=== PATIENT | female | born 1960 | race American Indian/Alaskan Native ===

== ENCOUNTER 2018-02-20 13:22 | Emergency (ER) | payer SELFPAY ==
[2018-02-20] MEDS ORDERED: ZOFRAN IV ONE ×2 (14:09→17:49)
[2018-02-20] MEDS ORDERED: MORPHINE IV ONE ×2 (14:09→17:49)
[2018-02-20] MEDS ORDERED: NACL 0.9% 1000 ML 1,000 ML IV ONE (14:09)
--- NOTE | 2018-02-20 14:13 | Emergency Department Report ---
Blank Doc - Documentation Documentation: 57-year-old female with epigastric pain nausea vomiting since this morning. Denies fever, constipation, diarrhea or urinary symptoms. History of hysterectomy in the past. Patient appears uncomfortable. Abdomen is nontender. States palpation actually helps to relieve some of her pain. Will obtain labs, EKG, imaging.
--- NOTE | 2018-02-20 14:34 | Emergency Department Report ---
ED Abdominal Pain HPI - General Chief Complaint: Abdominal Pain Stated Complaint: ABD PAIN Time Seen by Provider: 02/20/18 14:06 Source: patient, family, EMS Mode of arrival: Wheelchair Limitations: No Limitations - History of Present Illness Initial Comments: 57-year-old female with epigastric pain nausea vomiting since this morning. Denies fever, constipation, diarrhea or urinary symptoms. History of hysterectomy in the past. She said her pain is 10 out of 10 and sharp. Denies any fever or chills. Denies any diarrhea. MD Complaint: abdominal pain -: This morning Location: periumbilical, epigastric Radiation: none Migration to: no migration Severity: severe Severity scale (0 -10): 10 Quality: sharp Consistency: constant Improves With: nothing Worsens With: nothing Context: other (unknown) Associated Symptoms: nausea, vomiting, diarrhea. denies: fever, chills, constipation, dysuria, hematemesis, hematochezia, melena, hematuria, anorexia, syncope Treatments Prior to Arrival: other - Related Data LMP (females 10-50): other (hysterectomy) Allergies Allergy/AdvReac Type Severity Reaction Status Date / Time No Known Allergies Allergy Unverified 02/20/18 13:28 ED Review of Systems ROS: Stated complaint: ABD PAIN Other details as noted in HPI Constitutional: denies: chills, fever Eyes: denies: eye pain, eye discharge, vision change ENT: denies: ear pain, throat pain Respiratory: denies: cough, shortness of breath, SOB with exertion, SOB at rest , stridor, wheezing Cardiovascular: denies: chest pain, palpitations, dyspnea on exertion, edema, syncope Gastrointestinal: abdominal pain, nausea, vomiting. denies: diarrhea, constipation, hematemesis, melena, hematochezia Genitourinary: denies: urgency, dysuria, frequency, hematuria, discharge, abnormal menses, dyspareunia Musculoskeletal: denies: back pain, joint swelling, arthralgia, myalgia Skin: denies: rash, lesions Neurological: denies: headache, weakness Psychiatric: denies: anxiety, depression Hematological/Lymphatic: denies: easy bleeding, easy bruising ED Past Medical Hx - Past Medical History Previous Medical History?: No - Surgical History Past Surgical History?: Yes Additional Surgical History: fibroids - Family History Family history: hypertension - Social History Smoking Status: Never Smoker Substance Use Type: None ED Physical Exam - General Limitations: No Limitations General appearance: alert, in no apparent distress - Head Head exam: Present: atraumatic, normocephalic, normal inspection - Eye Eye exam: Present: normal appearance, PERRL, EOMI Pupils: Present: normal accommodation - ENT ENT exam: Present: normal exam, normal orophraynx, mucous membranes moist, TM's normal bilaterally, normal external ear exam - Neck Neck exam: Present: normal inspection, full ROM. Absent: tenderness, lymphadenopathy - Respiratory Respiratory exam: Present: normal lung sounds bilaterally. Absent: respiratory distress, chest wall tenderness, accessory muscle use - Cardiovascular Cardiovascular Exam: Present: regular rate, normal rhythm, normal heart sounds. Absent: systolic murmur, diastolic murmur - GI/Abdominal GI/Abdominal exam: Present: soft, tenderness, guarding, normal bowel sounds. Absent: rebound, rigid, organomegaly, mass, bruit, pulsatile mass, hernia - Expanded GI/Abdominal Exam Expanded GI/Abdominal exam: Present: Laura's sign, tenderness at [place]'s Point, other (tenderness also periumbilical and epigastric area no right upper quadrant tenderness). Absent: psoas sign, obturator sign - Extremities Exam Extremities exam: Present: normal inspection, full ROM, normal capillary refill , other (No cce. + 2 pulses in all extremities, no neurovascular compromise). Absent: tenderness, pedal edema, joint swelling, calf tenderness - Back Exam Back exam: Present: normal inspection, full ROM, other (ambulates without any difficulties). Absent: tenderness, CVA tenderness (R), CVA tenderness (L), muscle spasm, paraspinal tenderness, vertebral tenderness, rash noted - Neurological Exam Neurological exam: Present: alert, oriented X3, normal gait, reflexes normal. Absent: motor sensory deficit - Psychiatric Psychiatric exam: Present: normal affect, normal mood - Skin Skin exam: Present: warm, dry, intact, normal color. Absent: rash ED Course Vital Signs 02/20/18 02/20/18 02/20/18 13:28 15:31 16:23 Temperature 97.6 F 97.9 F Pulse Rate 81 70 Respiratory 16 18 20 Rate Blood Pressure 117/83 Blood Pressure 118/67 [Left] O2 Sat by Pulse 96 99 Oximetry 1002/20/18 02/20/18 16:45 17:36 18:11 Temperature 98.1 F Pulse Rate 86 Respiratory 18 18 18 Rate Blood Pressure Blood Pressure 114/70 [Left] O2 Sat by Pulse 99 100 Oximetry 02/20/18 18:20 Temperature 98.4 F Pulse Rate 89 Respiratory 18 Rate Blood Pressure Blood Pressure 125/75 [Left] O2 Sat by Pulse 100 Oximetry - Reevaluation(s) Reevaluation #1: 02/20/18 16:02 Patient states pain is better after morphine 4 mg IV, nausea better after Zofran 4 mg IV and she is currently getting in normal saline IV. Abdominal exam them still with epigastric and periumbilical tenderness. Patient to get CT scan of the abdomen and pelvis IV contrast. She has been updated. Reevaluation #2: 02/20/18 17:[address] findings with acute appendicitis and also herniation of liver and part of the diaphragm. Eyes: Spoke with surgeon who is Dr. Corrales and he reports that he is not to be able to handle her liver part of the surgery but he can handle the appendectomy. He said he thinks the patient needs to be transferred to another hospital such as [facility] or [place]. This was discussed with patient and I told her that she will need to be transferred and she is in agreement. I also gave her results of her CT scan. Lactic acid and blood culture ordered. Patient to start on D5 half-normal saline at 125 mL an hour and she was given morphine 4 mg IV and Zofran 4 g IV for continued pain. Abdominal assessment still with tenderness to palpate at McBurney's point and also periumbilical and epigastric area. Patient still says she has mild nausea and her pain is 10/10 at present. 02/20/18 23:17 Reevaluation #3: 02/20/18 18:[address] Corrales several time and it was decided the patient will need to be transferred and [facility] attending ED trauma surgeon except the patient to transfer from ED to ED. Dr. Adams who accepted patient. He was given for reports to include CT findings, laboratory results and physical exam findings. Patient will be started on Zosyn and she is transferred to main ED for continued care and monitoring. [facility] that [facility] did not have any trauma. ED Medical Decision Making - Lab Data Result diagrams: 02/20/18 Unknown 02/20/18 Unknown Lab Results 02/20/18 02/20/18 02/20/18 Range/Units 15:30 Unknown Unknown WBC 8.8 (4.5-11.0) K/mm3 RBC 5.05 H (3.65-5.03) M/mm3 Hgb 13.2 (10.1-14.3) gm/dl Hct 40.7 (30.3-42.9) % MCV 81 (79-97) fl MCH 26 L (28-32) pg MCHC 33 (30-34) % RDW 13.6 (13.2-15.2) % Plt Count 248 (140-440) K/mm3 Lymph % (Auto) 12.4 L (13.4-35.0) % Rush % (Auto) 4.3 (0.0-7.3) % Eos % (Auto) 0.7 (0.0-4.3) % Baso % (Auto) 0.5 (0.0-1.8) % Lymph # 1.1 L (1.2-5.4) K/mm3 Rush # 0.4 (0.0-0.8) K/mm3 Eos # 0.1 (0.0-0.4) K/mm3 Baso # 0.0 (0.0-0.1) K/mm3 Seg Neutrophils % 82.1 H (40.0-70.0) % Seg Neutrophils # 7.2 (1.8-7.7) K/mm3 Sodium 136 L (137-145) mmol/L Potassium 4.1 (3.6-5.0) mmol/L Chloride 100.1 (98-107) mmol/L Carbon Dioxide 27 (22-30) mmol/L Anion Gap 13 mmol/L BUN 12 (7-17) mg/dL Creatinine 0.8 (0.7-1.2) mg/dL Estimated GFR > 60 ml/min BUN/Creatinine Ratio 15 % Glucose 96 (65-100) mg/dL Calcium 10.2 (8.4-10.2) mg/dL Total Bilirubin 0.60 (0.1-1.2) mg/dL Direct Bilirubin < 0.2 (0-0.2) mg/dL Indirect Bilirubin 0.4 mg/dL AST 34 (5-40) units/L ALT 39 (7-56) units/L Alkaline Phosphatase 82 (35-129) units/L Troponin T < 0.010 (0.00-0.029) ng/mL Total Protein 8.3 H (6.3-8.2) g/dL Albumin 4.3 (3.9-5) g/dL Albumin/Globulin Ratio 1.1 % Lipase (13-60) units/L Urine Color Straw (Yellow) Urine Turbidity Clear (Clear) Urine pH 6.0 (5.0-7.0) Ur Specific [place] 1.006 (1.003-1.030) Urine Protein <15 mg/dl (Negative) mg/dL Urine Glucose (UA) Neg (Negative) mg/dL Urine Ketones Neg (Negative) mg/dL Urine Blood Sm (Negative) Urine Nitrite Neg (Negative) Urine Bilirubin Neg (Negative) Urine Urobilinogen < 2.0 (<2.0) mg/dL Ur Leukocyte Esterase Neg (Negative) Urine WBC (Auto) < 1.0 (0.0-6.0) /HPF Urine RBC (Auto) 3.0 (0.0-6.0) /HPF U Epithel Cells (Auto) 1.0 (0-13.0) /HPF Urine Mucus Few /HPF 02/20/18 Range/Units Unknown WBC (4.5-11.0) K/mm3 RBC (3.65-5.03) M/mm3 Hgb (10.1-14.3) gm/dl Hct (30.3-42.9) % MCV (79-97) fl MCH (28-32) pg MCHC (30-34) % RDW (13.2-15.2) % Plt Count (140-440) K/mm3 Lymph % (Auto) (13.4-35.0) % Rush % (Auto) (0.0-7.3) % Eos % (Auto) (0.0-4.3) % Baso % (Auto) (0.0-1.8) % Lymph # (1.2-5.4) K/mm3 Rush # (0.0-0.8) K/mm3 Eos # (0.0-0.4) K/mm3 Baso # (0.0-0.1) K/mm3 Seg Neutrophils % (40.0-70.0) % Seg Neutrophils # (1.8-7.7) K/mm3 Sodium (137-145) mmol/L Potassium (3.6-5.0) mmol/L Chloride (98-107) mmol/L Carbon Dioxide (22-30) mmol/L Anion Gap mmol/L BUN (7-17) mg/dL Creatinine (0.7-1.2) mg/dL Estimated GFR ml/min BUN/Creatinine Ratio % Glucose (65-100) mg/dL Calcium (8.4-10.2) mg/dL Total Bilirubin (0.1-1.2) mg/dL Direct Bilirubin (0-0.2) mg/dL Indirect Bilirubin mg/dL AST (5-40) units/L ALT (7-56) units/L Alkaline Phosphatase (35-129) units/L Troponin T (0.00-0.029) ng/mL Total Protein (6.3-8.2) g/dL Albumin (3.9-5) g/dL Albumin/Globulin Ratio % Lipase 53 (13-60) units/L Urine Color (Yellow) Urine Turbidity (Clear) Urine pH (5.0-7.0) Ur Specific [place] (1.003-1.030) Urine Protein (Negative) mg/dL Urine Glucose (UA) (Negative) mg/dL Urine Ketones (Negative) mg/dL Urine Blood (Negative) Urine Nitrite (Negative) Urine Bilirubin (Negative) Urine Urobilinogen (<2.0) mg/dL Ur Leukocyte Esterase (Negative) Urine WBC (Auto) (0.0-6.0) /HPF Urine RBC (Auto) (0.0-6.0) /HPF U Epithel Cells (Auto) (0-13.0) /HPF Urine Mucus /HPF Blood culture pending. Lactic acid pending - EKG Data -: EKG Interpreted by Me (head and physician) EKG shows normal: sinus rhythm Rate: normal - EKG Data Interpretation: no acute changes, normal EKG - Radiology Data Radiology results: report reviewed Abdominal series with chest [address] scan of the abdomen and pelvis with IV contrast dictated by radiologist and report reviewed by myself. Patient: ANNIKA ROBLES MR#: [id number] : 1960 Acct:[id number] Age/Sex: 57 / F ADM Date: 02/20/18 Loc: ED Attending Dr: Ordering Physician: KELTON MONTAÑO MD Date of Service: 02/20/18 Procedure(s): XR abd series w cxr 1V Accession Number(s): [id number] cc: KELTON MONTAÑO MD Fluoro Time In Minutes: ABDOMINAL SERIES: History: Epigastric pain. Erect chest film shows no acute or significant changes involving the heart or lung sellers. There is no evidence of free air beneath the diaphragms. The gas pattern within the abdomen is unremarkable. There is no evidence of bowel dilatation, significant air-fluid levels, or masses. Subtle calcifications are suggested in the epigastric region overlying the expected position of the pancreas. Chronic pancreatitis? IMPRESSION: Question mild chronic pancreatitis, see above. Otherwise, unremarkable exam. Transcribed By: TTR Dictated By: FRANTZ COMER JR, MD Electronically Authenticated By: FRANTZ COMER JR, MD Signed Date/Time: 02/20/181448 DD/ 47 TD/TT: 02/20/18 144 Findings [facility] [address] [place] [address] Cat Scan Report Signed Patient: ANNIKA ROBLES MR#: [id number] : 1960 Acct:[id number] Age/Sex: 57 / F ADM Date: 02/20/18 Loc: ED Attending Dr: Ordering Physician: CHEIKH FONTENOT Date of Service: 02/20/18 Procedure(s): CT abdomen pelvis w con Accession Number(s): [id number] cc: CHEIKH FONTENOT FINAL REPORT EXAM: CT ABDOMEN PELVIS W CON HISTORY: abdominal pain TECHNIQUE: Following administration of IV contrast axial helical imaging was performed through the abdomen and pelvis with sagittal and coronal reformatted images obtained. Delayed axial helical imaging was also performed through the abdomen and pelvis. Comparison: None FINDINGS: The lung bases are without infiltrate, pneumothorax or pleural fluid collection. The heart appears to be normal size. There appears to be herniation of a portion of the right lobe of the liver through the right hemidiaphragm. There appears to be intrahepatic biliary dilatation in the herniated portion of the right lobe of the liver. The spleen, pancreas, kidneys and adrenal glands are normal in appearance. The gallbladder is moderately distended and unremarkable in appearance. The distal appendix is enlarged (11 millimeters) and contains an appendicolith. There is the appearance of increased thickness of the wall of the distal appendix. The proximal appendix is normal caliber. There is a small amount of free fluid in the mesentery in the region of the distal appendix. There is no evidence of pneumoperitoneum. The bowel is otherwise normal caliber. The abdominal aorta is normal caliber. There is no evidence of pathologic intra-abdominal adenopathy by CT size criteria. Urinary bladder is moderately distended and unremarkable in appearance. The uterus is fibroid in appearance. The bony structures are unremarkable. IMPRESSION: 1. Findings consistent with acute appendicitis involving the distal appendix which contains an appendicolith. 2. Small amount of fluid in the mesentery in the region of the distal appendix. 3. 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 Comparison with previous imaging studies is recommended. MRI may also be helpful for further evaluation. Transcribed By: ED Dictated By: DELANEY FLEMING MD Electronically Authenticated By: DELANEY FLEMING MD Signed Date/Time: 02/20/181719 DD/ 19 TD/TT: 02/20/181719 - Medical Decision Making 57-year-old female here came report abdominal pain nausea and vomiting that started this morning. She was screened by Dr. Montaño and/or displaced. Abdominal x-ray with chest PA showed calcification and possible chronic pancreatitis but patient did not even know what pancreatitis and says she does not have any pain in her upper quadrant. On physical exam her pain was periumbilical and epigastric and also at McBurney's point. She had a CT scan of the abdomen and pelvis with IV contrast and he shows acute appendicitis with herniation of her lower lobe of her liver down into her diaphragm. Please see report for details in radiology section. She had CBC and CMP which were stable. Troponin stable, EKG is stable. Urinalysis stable. Patient had blood culture and lactic acid sent. Assessment/plan Abdominal pain-patient given morphine a total of 8 mg IV with some relief in pain. And vomiting and-relief with Zofran 8 mg IV. She also had normal saline 1 L and started on D5 half normal saline at 125 mL an hour Acute appendicitis-blood culture sent and patient started on Floxin. I spoke with general surgeon and was decided that patient will be transferred to another hospital due to other complications. Herniation of liver into diaphragm-patient will be transferred to [facility] ED and was accepted by trauma ED surgeon. She was updated on all radiology reports and lab results. I discussed with her that she needs to transferred to another hospital because hospital does not have to service that she needs for findings and her diagnosis. She agreed. Patient is stable. Pain is better nauseous relief. Vital signs are stable and she remains afebrile. Patient discharged over to [facility] to be monitored. Main site doctor assumed care of patient. She is awaiting transfer to [facility] ED - Differential Diagnosis hepatic abnormal, hernia, pancreatitis, abdominal mass, appendicitis, UTI, Critical care attestation.: If time is entered above; I have spent that time in minutes in the direct care of this critically ill patient, excluding procedure time. ED Disposition Clinical Impression: Diaphragmatic hernia without obstruction or gangrene Abdominal pain Qualifiers: Abdominal location: unspecified location Qualified Code(s): R10.9 - Unspecified abdominal pain Appendicitis, acute Qualifiers: Acute appendicitis type: other Qualified Code(s): K35.89 - Other acute appendicitis Nausea and vomiting Qualifiers: Vomiting type: unspecified Vomiting Intractability: non-intractable Qualified Code(s): R11.2 - Nausea with vomiting, unspecified Disposition: DC/TX-70 ANOTHER TYPE HLTHCARE Is pt being admited?: No Does the pt Need Aspirin: No Condition: Stable Instructions: Abdominal Pain (ED) Referrals: PRIMARY CARE, [Primary Care Provider] - 3-5 Days
--- NOTE | 2018-02-20 14:50 | XRay Report ---
ABDOMINAL SERIES: History: Epigastric pain. Erect chest film shows no acute or significant changes involving the heart or lung sellers. There is no evidence of free air beneath the diaphragms. The gas pattern within the abdomen is unremarkable. There is no evidence of bowel dilatation, significant air-fluid levels, or masses. Subtle calcifications are suggested in the epigastric region overlying the expected position of the pancreas. Chronic pancreatitis? IMPRESSION: Question mild chronic pancreatitis, see above. Otherwise, unremarkable exam.
[2018-02-20 15:59] LABS: Bilirubin,Urine NEG (Negative); Blood,Urine SM (Negative); Color,Urine Straw (Yellow); Mucus,Urine FEW /HPF; Protein,Urine <15 mg/dL mg/dL (Negative); Urobilinogen,Urine < 2.0 mg/dL (<2.0); WBC,Urine < 1.0 /HPF (0.0-6.0)
[2018-02-20 16:01] LABS: Basophils % (Auto) 0.5 % (0.0-1.8); Eosinophils # (Auto) 0.1 K/mm3 (0.0-0.4); Eosinophils % (Auto) 0.7 % (0.0-4.3); Hematocrit 40.7 % (30.3-42.9); Hemoglobin 13.2 gm/dl (10.1-14.3); Lymphocytes # (Auto) 1.1 K/mm3 (1.2-5.4); Lymphocytes % (Auto) 12.4 % (13.4-35.0); Mean Corpuscular HGB Conc 33 % (30-34); Mean Corpuscular Hemoglobin 26 pg (28-32); Mean Corpuscular Volume 81 fl (79-97); Monocytes # (Auto) 0.4 K/mm3 (0.0-0.8); Monocytes % (Auto) 4.3 % (0.0-7.3); Platelet Count 248 K/mm3 (140-440); Red Blood Count 5.05 M/mm3 (3.65-5.03); Red Cell Distribution Width 13.6 % (13.2-15.2)
[2018-02-20 16:02] LABS: Alanine Aminotransferase 39 units/L (7-56); Albumin 4.3 g/dL (3.9-5); BUN/Creatinine Ratio 15; Blood Urea Nitrogen 12 mg/dL (7-17); Calcium 10.2 mg/dL (8.4-10.2); Hemolysis Index 16
[2018-02-20 16:22] LABS: Bilirubin,Direct < 0.2 mg/dL (0-0.2)
--- NOTE | 2018-02-20 17:21 | Cat Scan Report ---
FINAL REPORT EXAM: CT ABDOMEN PELVIS W CON HISTORY: abdominal pain TECHNIQUE: Following administration of IV contrast axial helical imaging was performed through the abdomen and pelvis with sagittal and coronal reformatted images obtained. Delayed axial helical imaging was also performed through the abdomen and pelvis. Comparison: None FINDINGS: The lung bases are without infiltrate, pneumothorax or pleural fluid collection. The heart appears to be normal size. There appears to be herniation of a portion of the right lobe of the liver through the right hemidiaphragm. There appears to be intrahepatic biliary dilatation in the herniated portion of the right lobe of the liver. The spleen, pancreas, kidneys and adrenal glands are normal in appearance. The gallbladder is moderately distended and unremarkable in appearance. The distal appendix is enlarged (11 millimeters) and contains an appendicolith. There is the appearance of increased thickness of the wall of the distal appendix. The proximal appendix is normal caliber. There is a small amount of free fluid in the mesentery in the region of the distal appendix. There is no evidence of pneumoperitoneum. The bowel is otherwise normal caliber. The abdominal aorta is normal caliber. There is no evidence of pathologic intra-abdominal adenopathy by CT size criteria. Urinary bladder is moderately distended and unremarkable in appearance. The uterus is fibroid in appearance. The bony structures are unremarkable. IMPRESSION: 1. Findings consistent with acute appendicitis involving the distal appendix which contains an appendicolith. 2. Small amount of fluid in the mesentery in the region of the distal appendix. 3. 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 Comparison with previous imaging studies is recommended. MRI may also be helpful for further evaluation.
[2018-02-20] MEDS ORDERED: ZOFRAN ONE (17:53)
[2018-02-20] MEDS ORDERED: MORPHINE ONE ×2 (17:53→17:54)
[2018-02-20] MEDS ORDERED: D5/0.45NS 1,000 ML IV SCH (18:00)
[2018-02-20 18:21] VITALS: BP 125/75
[2018-02-20] MEDS ORDERED: ZOSYN/NS 4.5GM/100ML 4.5 GM/100 ML VIAL IV SCH (19:00)
== END 2018-02-20 19:09 | disposition other institution (70) ==
LOC: ED 13:22
DX: K35.890 Other acute appendicitis without perforation or gangrene (principal); K44.9 Diaphragmatic hernia without obstruction or gangrene
CPT/HCPCS: 36415; 74022; 74177; 80048; 80074; 81001; 83690; 84484; 85025; 93005; 93010; 96361; 96374; 96375; 96376; 99285; J2270; J2405; J7030; Q9967